=== PATIENT | female | born 1950 | race Caucasian/White ===

== ENCOUNTER 2018-06-30 10:05 | Emergency (ER) | payer OTHER ==
[~2018-06-30] VITALS: Ht 154.9 cm; Wt 55.3 kg
[2018-06-30 10:23] VITALS: Ht 154.9 cm; Wt 55.3 kg
[2018-06-30 12:00] VITALS: BP 166/86
== END 2018-06-30 12:26 | disposition home or self-care (01) ==
LOC: ED 10:05
DX: H92.01 Otalgia, right ear (principal); E78.00 Pure hypercholesterolemia, unspecified; E11.9 Type 2 diabetes mellitus without complications